=== PATIENT | female | born 1985 | race American Indian/Alaskan Native ===

== ENCOUNTER 2019-12-20 22:27 | Emergency (ER) | payer SELFPAY ==
--- NOTE | 2019-12-21 01:33 | XRay Report ---
CHEST PA AND LATERAL VIEWS INDICATION: COUGH AND FEVER. COMPARISON: None FINDINGS: Support devices: None Heart: Normal Lungs/Pleura: No acute pulmonary or pleural findings. IMPRESSION: 1. No significant abnormality. Signer Name: Matt Fischer MD Signed: 12/21/2019 1:28 AM Workstation Name: [id number]
[2019-12-21] MEDS ORDERED: IBUPROFEN 600 MG TAB PO ONE (01:34)
[2019-12-21] MEDS ORDERED: SODIUM CHLORIDE 0.9% 1000 ML 1,000 ML IV ONE (01:42)
[2019-12-21] MEDS ORDERED: methylPREDNISolone Sod Succinate 125 MG/2 ML INJ IV ONE (01:42)
[2019-12-21] MEDS: IPRATROPIUM/ALBUTEROL SULFATE 3 ML AMPUL.NEB IH ONE (02:04)
[2019-12-21 02:15] LABS: Basophils # (Auto) 0.1 K/mm3 (0.0-0.1); Basophils % (Auto) 0.9 % (0.0-1.8); Eosinophils # (Auto) 0.1 K/mm3 (0.0-0.4); Eosinophils % (Auto) 1.1 % (0.0-4.3); Hematocrit 39.6 % (30.3-42.9); Hemoglobin 13.3 gm/dl (10.1-14.3); Lymphocytes # (Auto) 2.3 K/mm3 (1.2-5.4); Lymphocytes % (Auto) 24.7 % (13.4-35.0); Mean Corpuscular HGB Conc 34 % (30-34); Mean Corpuscular Volume 83 fl (79-97); Monocytes # (Auto) 0.8 K/mm3 (0.0-0.8); Monocytes % (Auto) 8.7 % (0.0-7.3); Platelet Count 228 K/mm3 (140-440); Red Cell Distribution Width 13.4 % (13.2-15.2)
[2019-12-21 02:38] LABS: Alanine Aminotransferase 28 units/L (7-56); BUN/Creatinine Ratio 14; Blood Urea Nitrogen 10 mg/dL (7-17); Calcium 9.2 mg/dL (8.4-10.2); Hemolysis Index 8
[2019-12-21 02:46] LABS: Bacteria,Urine 4+ /HPF (Negative); Bilirubin,Urine NEG (Negative); Blood,Urine NEG (Negative); Color,Urine Yellow (Yellow); Mucus,Urine 1+ /HPF; Protein,Urine <15 mg/dL mg/dL (Negative)
--- NOTE | 2019-12-21 02:46 | Emergency Department Report ---
- General Chief Complaint: Upper Respiratory Infection Stated Complaint: FLU LIKE SYMPTOMS Source: patient Mode of arrival: Ambulatory Limitations: No Limitations - History of Present Illness Initial Comments: Patient is a 34-year-old female with a history of [id number] diabetes who presented to the ED with complaint of acute onset persistent nasal and sinus congestion, frontal sinus pressure and headache, diffuse body aches and pains, sore throat, persistent dry cough with wheezing and shortness of breath and intermittent fever and chills for the last 2 weeks worse in the last 2 days. Dank liu denies dizziness, syncope, chest pain, abdominal pain, dysuria, urinary frequency or urgency, vaginal bleeding, vaginal discharge, palpitations, vision changes or diarrhea. MD Complaint: fever, cough, sore throat, rhinorrhea, nasal congestion, sinus pain, other (diffuse body aches) -: Sudden, week(s) (2) Severity: severe Severity scale (0 -10): 8 Quality: sharp, aching Consistency: constant Improves With: nothing Worsens With: nothing Associated Symptoms: denies other symptoms, fever, chills, myalgias, headache, rhinorrhea, nasal congestion, sore throat, cough, shortness of breath. denies: diaphoresis, chest pain, abdominal pain, nausea, vomiting, diarrhea, dysuria, rash, confusion, right sweats, weight loss, epistaxis, hoarseness, ear pain Treatments Prior to Arrival: none - Related Data Previous Rx's Medication Instructions Recorded Last Taken Type Albuterol Sulfate [Proventil Hfa] 1 - 2 puff IH Q6H PRN #1 inh 12/21/19 Unknown Rx Benzonatate [Tessalon Perles] 100 mg PO Q8HR #30 capsule 12/21/19 Unknown Rx Cetirizine HCl [Zyrtec 10mg tab] 10 mg PO DAILY #30 tablet 12/21/19 Unknown Rx Doxycycline Hyclate 100 mg PO Q12H #20 tablet. 12/21/19 Unknown Rx Ibuprofen [Motrin] 600 mg PO Q8H PRN #24 tablet 12/21/19 Unknown Rx Sulfamethoxazole/Trimethoprim 1 each PO Q12H #20 tablet 12/21/19 Unknown Rx [Bactrim DS TAB] Allergies Allergy/AdvReac Type Severity Reaction Status Date / Time No Known Allergies Allergy Unverified 03/14/20 00:45 ED Review of Systems ROS: Stated complaint: FLU LIKE SYMPTOMS Other details as noted in HPI Constitutional: chills, fever, malaise Eyes: denies: eye pain, eye discharge, vision change ENT: throat pain, congestion. denies: ear pain Respiratory: cough. denies: shortness of breath, wheezing Cardiovascular: denies: chest pain, palpitations Endocrine: no symptoms reported Gastrointestinal: denies: abdominal pain, nausea, vomiting, diarrhea Genitourinary: denies: urgency, dysuria, discharge Musculoskeletal: back pain, arthralgia, myalgia. denies: joint swelling Skin: denies: rash, lesions Neurological: headache. denies: weakness, paresthesias Psychiatric: denies: anxiety, depression Hematological/Lymphatic: denies: easy bleeding, easy bruising ED Past Medical Hx - Past Medical History Previous Medical History?: Yes Hx Diabetes: Yes - Surgical History Past Surgical History?: No - Social History Smoking Status: Current Every Day Smoker Substance Use Type: None - Medications Home Medications: Home Medications Medication Instructions Recorded Confirmed Last Taken Type Albuterol Sulfate [Proventil Hfa] 1 - 2 puff IH Q6H PRN #1 inh 12/21/19 Unknown Rx Benzonatate [Tessalon Perles] 100 mg PO Q8HR #30 capsule 12/21/19 Unknown Rx Cetirizine HCl [Zyrtec 10mg tab] 10 mg PO DAILY #30 tablet 12/21/19 Unknown Rx Doxycycline Hyclate 100 mg PO Q12H #20 tablet.dr 12/21/19 Unknown Rx Ibuprofen [Motrin] 600 mg PO Q8H PRN #24 tablet 12/21/19 Unknown Rx Sulfamethoxazole/Trimethoprim 1 each PO Q12H #20 tablet 12/21/19 Unknown Rx [Bactrim DS TAB] ED Physical Exam - General Limitations: No Limitations General appearance: alert, in no apparent distress - Head Head exam: Present: atraumatic, normocephalic, normal inspection - Eye Eye exam: Present: normal appearance, PERRL, EOMI Pupils: Present: normal accommodation - ENT ENT exam: Present: mucous membranes moist, TM's normal bilaterally, normal external ear exam, other (Grossly congested nasal passages; palpable frontal sinus tenderness) - Neck Neck exam: Present: normal inspection, full ROM. Absent: tenderness, lymph adenopathy - Respiratory Respiratory exam: Present: normal lung sounds bilaterally, wheezes (Mildly diffuse coarse wheezes throughout). Absent: respiratory distress, chest wall tenderness, accessory muscle use - Cardiovascular Cardiovascular Exam: Present: regular rate, normal rhythm, normal heart sounds. Absent: systolic murmur, diastolic murmur, rubs, gallop - GI/Abdominal GI/Abdominal exam: Present: soft, normal bowel sounds. Absent: tenderness, guarding, hyperactive bowel sounds, hypoactive bowel sounds, organomegaly - Extremities Exam Extremities exam: Present: normal inspection, full ROM, normal capillary refill - Back Exam Back exam: Present: normal inspection, full ROM. Absent: tenderness, muscle spasm, paraspinal tenderness - Neurological Exam Neurological exam: Present: alert, oriented X3, CN II-XII intact, normal gait, reflexes normal - Psychiatric Psychiatric exam: Present: normal affect, normal mood - Skin Skin exam: Present: warm, dry, intact, normal color. Absent: rash ED Course Vital Signs 12/20/19 12/21/19 12/21/19 22:37 00:46 02:01 Temperature 100.3 F H 99.1 F Pulse Rate 125 H 110 H Respiratory 18 18 18 Rate Blood Pressure 152/96 Blood Pressure [Left] O2 Sat by Pulse 100 100 Oximetry 12/21/19 03:00 Temperature 98.7 F Pulse Rate 101 H Respiratory 18 Rate Blood Pressure Blood Pressure 128/80 [Left] O2 Sat by Pulse 100 Oximetry ED Medical Decision Making - Lab Data Result diagrams: 12/21/19 01:55 12/21/19 01:55 - Radiology Data Radiology results: report reviewed, image reviewed Chest x-ray shows no acute cardiopulmonary abnormalities or pneumonitis. - Medical Decision Making This is a 34-year-old female with a history of [id number] diabetes who presented to the ED with complaint of acute onset persistent nasal and sinus congestion, frontal sinus pressure and headache, diffuse body aches and pains, sore throat, persistent dry cough with wheezing and shortness of breath and int ermittent fever and chills for the last 2 weeks worse in the last 2 days. In the ED, patient is alert and oriented x3 and is not in any distress but tachycardic and febrile in triage. Lab test results were reviewed and are all nonactionable except for acute hyperglycemia of 287 mg/dL and mild hyponatremia of 136 mmol/L. All other test results were nonactionable. Chest x-ray shows no acute cardiopulmonary abnormalities or pneumonitis. Patient received DuoNeb treatment in the ED and Solu-Medrol. Patient also received treatment with ibuprofen for pains and fever. On reevaluation, patient's vital signs are stable and patient was discharged home on medications and advised to follow-up with her primary care physician in 5 to 7 days for reevaluation or return to the ED immediately if symptoms get worse. - Differential Diagnosis Pneumonia; Flu; bronchitis; URI; strep pharyngitis; Critical care attestation.: If time is entered above; I have spent that time in minutes in the direct care of this critically ill patient, excluding procedure time. ED Disposition Clinical Impression: Flu-like symptoms, Acute upper respiratory infection, Fever with chills, Acute urinary tract infection Acute bronchitis Qualifiers: Bronchitis organism: other organism Qualified Code(s): J20.8 - Acute bronchitis due to other specified organisms Acute pharyngitis Qualifiers: Pharyngitis/tonsillitis etiology: other specified organisms Qualified Code(s): J02.8 - Acute pharyngitis due to other specified organisms Disposition: DC-01 TO HOME OR SELFCARE Is pt being admited?: No Does the pt Need Aspirin: No Condition: Stable Instructions: Pharyngitis (ED), Fever in Adults (ED), Upper Respiratory Infection (ED), Acute Bronchitis (ED) Additional Instructions: Take medication with food, drink plenty fluids and follow-up with your primary care physician in 7 to 10 days for reevaluation. Return to the ED immediately if symptoms get worse. Prescriptions: Sulfamethoxazole/Trimethoprim [Bactrim DS TAB] 1 each PO Q12H #20 tablet Doxycycline Hyclate 100 mg PO Q12H #20 tablet. Ibuprofen [Motrin] 600 mg PO Q8H PRN #24 tablet PRN Reason: Pain Albuterol Sulfate [Proventil Hfa] 1 - 2 puff IH Q6H PRN #1 inh PRN Reason: Dyspnea Benzonatate [Tessalon Perles] 100 mg PO Q8HR #30 capsule Cetirizine HCl [Zyrtec 10mg tab] 10 mg PO DAILY #30 tablet Referrals: [facility] [Outside] - 3-5 Days Forms: Work/School Release Form(ED) Time of Disposition: 02:54 Print Language: EGYPTIAN
[2019-12-21 04:26] VITALS: BP 136/82
== END 2019-12-21 04:26 | disposition home or self-care (01) ==
LOC: ED 22:27
DX: J20.8 Acute bronchitis due to other specified organisms (principal); J02.8 Acute pharyngitis due to other specified organisms; J11.1 Influenza due to unidentified influenza virus with other respiratory manifestations; N39.0 Urinary tract infection, site not specified; E11.9 Type 2 diabetes mellitus without complications; F17.200 Nicotine dependence, unspecified, uncomplicated; Z79.899 Other long term (current) drug therapy
CPT/HCPCS: 36415; 71046; 80053; 81001; 85025; 87086; 87116; 87400; 87430; 96374; 99284; J2930; J7030

== ENCOUNTER 2019-12-21 06:56 | Emergency (ER) | payer SELFPAY ==
--- NOTE | 2019-12-21 09:47 | Emergency Department Report ---
ED Lower Extremity HPI - General Chief Complaint: Extremity Injury, Lower Stated Complaint: LT FOOT PAIN Time Seen by Provider: 12/21/19 09:39 Source: patient, family Mode of arrival: Ambulatory Limitations: No Limitations - History of Present Illness Initial Comments: Patient complains of left great toe pain x2 months. She states that she tripped and fell 2 months ago hurting her toe and it has been painful and mildly swollen since. Patient does have a history of diabetes. She rates her pain as a 4/10 in severity. She denies any fever/chills/sweats or redness to the area. - Related Data Previous Rx's Medication Instructions Recorded Last Taken Type Albuterol Sulfate [Proventil Hfa] 1 - 2 puff IH Q6H PRN #1 inh 12/21/19 Unknown Rx Benzonatate [Tessalon Perles] 100 mg PO Q8HR #30 capsule 12/21/19 Unknown Rx Cetirizine HCl [Zyrtec 10mg tab] 10 mg PO DAILY #30 tablet 12/21/19 Unknown Rx Doxycycline Hyclate 100 mg PO Q12H #20 tablet. 12/21/19 Unknown Rx Ibuprofen [Motrin] 600 mg PO Q8H PRN #24 tablet 12/21/19 Unknown Rx Sulfamethoxazole/Trimethoprim 1 each PO Q12H #20 tablet 12/21/19 Unknown Rx [Bactrim DS TAB] Allergies Allergy/AdvReac Type Severity Reaction Status Date / Time No Known Allergies Allergy Unverified 12/21/19 00:45 ED Review of Systems ROS: Stated complaint: LT FOOT PAIN Other details as noted in HPI Constitutional: denies: chills, diaphoresis, fever, malaise, weakness Musculoskeletal: joint swelling, arthralgia Neurological: denies: numbness, abnormal gait ED Past Medical Hx - Past Medical History Previous Medical History?: Yes Hx Diabetes: Yes - Surgical History Past Surgical History?: No - Social History Smoking Status: Current Every Day Smoker Substance Use Type: Prescribed - Medications Home Medications: Home Medications Medication Instructions Recorded Confirmed Last Taken Type Albuterol Sulfate [Proventil Hfa] 1 - 2 puff IH Q6H PRN #1 inh 12/21/19 Unknown Rx Benzonatate [Tessalon Perles] 100 mg PO Q8HR #30 capsule 12/21/19 Unknown Rx Cetirizine HCl [Zyrtec 10mg tab] 10 mg PO DAILY #30 tablet 12/21/19 Unknown Rx Doxycycline Hyclate 100 mg PO Q12H #20 tablet. 12/21/19 Unknown Rx Ibuprofen [Motrin] 600 mg PO Q8H PRN #24 tablet 12/21/19 Unknown Rx Sulfamethoxazole/Trimethoprim 1 each PO Q12H #20 tablet 12/21/19 Unknown Rx [Bactrim DS TAB] ED Physical Exam - General Limitations: No Limitations General appearance: alert, in no apparent distress - Head Head exam: Present: atraumatic, normocephalic - Eye Eye exam: Present: normal appearance - Respiratory Respiratory exam: Absent: respiratory distress - Cardiovascular Cardiovascular Exam: Present: regular rate - Extremities Exam Extremities exam: Present: tenderness (Tenderness noted to DIP joint of left great toe with minimal swelling. No erythema or bruising noted.) - Neurological Exam Neurological exam: Present: alert, oriented X3 - Psychiatric Psychiatric exam: Present: normal affect, normal mood - Skin Skin exam: Present: warm, dry, intact, normal color. Absent: rash, cyanosis, diaphoretic, erythema, ecchymosis ED Course Vital Signs 12/21/19 07:15 Temperature 98.2 F Pulse Rate 99 H Respiratory 18 Rate Blood Pressure 134/84 O2 Sat by Pulse 100 Oximetry ED Lower Extremity MDM - Radiology Data Radiology results: report reviewed LEFT TOES 3 VIEWS INDICATION / CLINICAL INFORMATION: great toe pain x 2 months, diabetic COMPARISON: None available. FINDINGS: BONES / JOINT(S): No acute fracture or subluxation. There is mild degenerative change in the interphalangeal joint. No erosions or periosteal reaction is seen area SOFT TISSUES: No significant abnormality. ADDITIONAL FINDINGS: None. - Medical Decision Making Patient here with left toe pain for 2 months after an injury. X-ray is negative for osteomyelitis or other acute findings. It does show some osteoarthritis- suspect patient's symptoms are due to this. Recommend follow-up with primary care provider or podiatry as needed. She is nontoxic-appearing and stable for discharge home. Discussed strict return precautions in great detail with patient who verbalized understanding. Critical care attestation.: If time is entered above; I have spent that time in minutes in the direct care of this critically ill patient, excluding procedure time. ED Disposition Clinical Impression: Toe pain, left Disposition: DC-01 TO HOME OR SELFCARE Is pt being admited?: No Condition: Stable Instructions: Arthralgia (ED) Referrals: DYLON CARD DPM [Staff Physician] - 7-10 days PRIMARY CARE, [Primary Care Provider] - as needed
--- NOTE | 2019-12-21 10:25 | XRay Report ---
LEFT TOES 3 VIEWS INDICATION / CLINICAL INFORMATION: great toe pain x 2 months, diabetic COMPARISON: None available. FINDINGS: BONES / JOINT(S): No acute fracture or subluxation. There is mild degenerative change in the interpha langeal joint. No erosions or periosteal reaction is seen area SOFT TISSUES: No significant abnormality. ADDITIONAL FINDINGS: None. Signer Name: Bobby Washburn MD Signed: 12/21/2019 10:21 AM Workstation Name: [id number]
[2019-12-21 11:54] VITALS: BP 126/82
== END 2019-12-21 11:53 | disposition home or self-care (01) ==
LOC: ED 06:56
DX: M79.675 Pain in left toe(s) (principal); Z79.1 Long term (current) use of non-steroidal anti-inflammatories (NSAID); Z79.899 Other long term (current) drug therapy

== ENCOUNTER 2020-12-22 23:02 | Emergency (ER) | payer SELFPAY ==
[2020-12-22 23:33] VITALS: BP 154/93
[2020-12-23] MEDS ORDERED: IBUPROFEN 800 MG TAB PO ONE (00:16)
--- NOTE | 2020-12-23 00:39 | Emergency Department Report ---
ED General Adult HPI - General Chief complaint: Upper Respiratory Infection Stated complaint: COUGH;CHEST PAIN;HOT FLASHES;DIARRHEA Time Seen by Provider: 12/23/20 00:30 Source: patient Mode of arrival: Ambulatory Limitations: No Limitations - History of Present Illness Initial comments: Patient 35-year-old -Faro[place] female who presents for cough chills nocturnal fever for 1 week. Denies history of asthma states recurrent bronchitis however. Patient denies shortness of breath, there is no wheezing or stridor. No T-max recorded at home temp is 99.0 in triage today. There is no nausea vomiting at this time. Patient states cough is productive thick yellow patient additionally denies smoking. Symptoms are exacerbated by environmental exposure and activity. Symptoms are relieved by nothing tried. Severity scale (0 -10): 3 - Related Data Previous Rx's Medication Instructions Recorded Last Taken Type Albuterol Sulfate [Proventil Hfa] 1 - 2 puff IH Q6H PRN #1 inh 12/21/19 Unknown Rx Benzonatate [Tessalon Perles] 100 mg PO Q8HR #30 capsule 12/21/19 Unknown Rx Cetirizine HCl [Zyrtec 10mg tab] 10 mg PO DAILY #30 tablet 12/21/19 Unknown Rx Diclofenac 1% [Diclofenac 1% 100 gm TP QID PRN #1 tube 12/21/19 Unknown Rx topical gel] Doxycycline Hyclate 100 mg PO Q12H #20 tablet. 12/21/19 Unknown Rx Ibuprofen [Motrin] 600 mg PO Q8H PRN #24 tablet 12/21/19 Unknown Rx Sulfamethoxazole/Trimethoprim 1 each PO Q12H #20 tablet 12/21/19 Unknown Rx [Bactrim DS TAB] Albuterol Mdi (or & Nicu Only) 2 puff IH QID PRN #8.5 gram 12/23/20 Unknown Rx [ProAir HFA Inhaler] Ibuprofen [Motrin 800 MG tab] 800 mg PO Q8HR PRN #30 tablet 12/23/20 Unknown Rx predniSONE [Deltasone] 40 mg PO DAILY 5 Days #10 tablet 12/23/20 Unknown Rx Allergies Allergy/AdvReac Type Severity Reaction Status Date / Time No Known Allergies Allergy Verified 12/22/20 23:32 ED Review of Systems ROS: Stated complaint: COUGH;CHEST PAIN;HOT FLASHES;DIARRHEA Other details as noted in HPI Constitutional: chills, fever Eyes: as per HPI ENT: denies: ear pain, throat pain Respiratory: cough. denies: shortness of breath, wheezing Cardiovascular: denies: chest pain, palpitations Endocrine: no symptoms reported Gastrointestinal: denies: abdominal pain, nausea, diarrhea Genitourinary: denies: urgency, dysuria, discharge Musculoskeletal: denies: back pain, joint swelling, arthralgia Skin: denies: rash, lesions Neurological: denies: headache, weakness, paresthesias Psychiatric: denies: anxiety, depression Hematological/Lymphatic: denies: easy bleeding, easy bruising ED Past Medical Hx - Past Medical History Previous Medical History?: Yes Hx Diabetes: Yes - Surgical History Past Surgical History?: Yes Additional Surgical History: cyst removed from buttocks - Social History Smoking Status: Never Smoker Substance Use Type: None - Medications Home Medications: Home Medications Medication Instructions Recorded Confirmed Last Taken Type Albuterol Sulfate [Proventil Hfa] 1 - 2 puff IH Q6H PRN #1 inh 12/21/19 Unknown Rx Benzonatate [Tessalon Perles] 100 mg PO Q8HR #30 capsule 12/21/19 Unknown Rx Cetirizine HCl [Zyrtec 10mg tab] 10 mg PO DAILY #30 tablet 12/21/19 Unknown Rx Diclofenac 1% [Diclofenac 1% 100 gm TP QID PRN #1 tube 12/21/19 Unknown Rx topical gel] Doxycycline Hyclate 100 mg PO Q12H #20 tablet. 12/21/19 Unknown Rx Ibuprofen [Motrin] 600 mg PO Q8H PRN #24 tablet 12/21/19 Unknown Rx Sulfamethoxazole/Trimethoprim 1 each PO Q12H #20 tablet 12/21/19 Unknown Rx [Bactrim DS TAB] Albuterol Mdi (or & Nicu Only) 2 puff IH QID PRN #8.5 gram 12/23/20 Unknown Rx [ProAir HFA Inhaler] Ibuprofen [Motrin 800 MG tab] 800 mg PO Q8HR PRN #30 tablet 12/23/20 Unknown Rx predniSONE [Deltasone] 40 mg PO DAILY 5 Days #10 tablet 12/23/20 Unknown Rx ED Physical Exam - General Limitations: No Limitations General appearance: alert, in no apparent distress - Head Head exam: Present: atraumatic, normocephalic - Eye Eye exam: Present: normal appearance, PERRL, EOMI Pupils: Present: normal accommodation - ENT ENT exam: Present: mucous membranes moist - Neck Neck exam: Present: normal inspection, full ROM. Absent: tenderness - Respiratory Respiratory exam: Present: normal lung sounds bilaterally, chest wall tenderness (right anterior lateral ). Absent: respiratory distress, wheezes, stridor - Cardiovascular Cardiovascular Exam: Present: regular rate, normal rhythm, normal heart sounds. Absent: systolic murmur, diastolic murmur, rubs, gallop - GI/Abdominal GI/Abdominal exam: Present: soft, normal bowel sounds. Absent: distended, tenderness, guarding, rebound, rigid, bruit, hernia - Rectal Rectal exam: Present: deferred - Extremities Exam Extremities exam: Present: normal inspection, full ROM, normal capillary refill. Absent: tenderness - Back Exam Back exam: Present: normal inspection. Absent: tenderness, CVA tenderness (R), CVA tenderness (L) - Neurological Exam Neurological exam: Present: alert, oriented X3, CN II-XII intact, normal gait - Psychiatric Psychiatric exam: Present: normal affect, normal mood - Skin Skin exam: Present: warm, dry, intact, normal color. Absent: rash ED Course Vital Signs 12/22/20 12/23/20 23:27 01:55 Temperature 99.8 F H Pulse Rate 111 H 87 Respiratory 18 16 Rate Blood Pressure 154/93 O2 Sat by Pulse 100 100 Oximetry ED Medical Decision Making - Radiology Data Radiology results: report reviewed, image reviewed Fluoro Time In Minutes: XR chest 1V ap INDICATION / CLINICAL INFORMATION: cough fever COMPARISON: 12/21/2019 FINDINGS: SUPPORT DEVICES: None. HEART / MEDIASTINUM: No significant abnormality. LUNGS / PLEURA: Lungs are clear. Costophrenic sulci are sharp. No pneumothorax. ADDITIONAL FINDINGS: No significant additional findings. IMPRESSION: 1. No acute findings Signer Name: Quentin Manzano MD Signed: 12/23/2020 12:50 AM Workstation Name: [id number] Transcribed By: PAIGE Dictated By: Quentin Manzano MD Electronically Authenticated By: Quentin Manzano MD Signed Date/Time: 12/23/20 0050 DD/ 004 TD/TT: Print - Medical Decision Making cxr normal, lungs sounds clear bilat, pt sleeping quitely, easily aroused, pt advises symptoms are improved, plan dc to home with rx , follow up with pcp in 2-3 days. pt verbalized agreement and understanding of discharge plan. pt is tolerating po hydration without symptoms. Critical care attestation.: If time is entered above; I have spent that time in minutes in the direct care of this critically ill patient, excluding procedure time. ED Disposition Clinical Impression: Bronchitis Disposition: DC-01 TO HOME OR SELFCARE Is pt being admited?: No Does the pt Need Aspirin: No Condition: Stable Instructions: Chronic Bronchitis (ED) Prescriptions: predniSONE [Deltasone] 40 mg PO DAILY 5 Days #10 tablet Ibuprofen [Motrin 800 MG tab] 800 mg PO Q8HR PRN #30 tablet PRN Reason: pain fever Albuterol Mdi (or & Nicu Only) [ProAir HFA Inhaler] 2 puff IH QID PRN #8.5 gram PRN Reason: Shortness Of Breath Referrals: [facility] [Provider Group] - 3-5 Days Forms: Work/School Release Form(ED) Time of Disposition: 02:04
--- NOTE | 2020-12-23 00:54 | XRay Report ---
XR chest 1V ap INDICATION / CLINICAL INFORMATION: cough fever COMPARISON: 12/21/2019 FINDINGS: SUPPORT DEVICES: None. HEART / MEDIASTINUM: No significant abnormality. LUNGS / PLEURA: Lungs are clear. Costophrenic sulci are sharp. No pneumothorax. ADDITIONAL FINDINGS: No significant additional findings. IMPRESSION: 1. No acute findings. Signer Name: Quentin Manzano MD Signed: 12/23/2020 12:50 AM Workstation Name: [id number]
== END 2020-12-23 02:20 | disposition home or self-care (01) ==
LOC: ED 23:02
DX: J40 Bronchitis, not specified as acute or chronic (principal); E11.9 Type 2 diabetes mellitus without complications; Z79.899 Other long term (current) drug therapy; Z98.890 Other specified postprocedural states
CPT/HCPCS: 71045; 93005

== ENCOUNTER 2021-03-17 22:16 | Emergency (ER) | payer SELFPAY ==
--- NOTE | 2021-03-17 22:49 | Event Note ---
ED Screening Note ED Screening Note: PT STATES SHES BEEN OUT OF INSULIN FOR 2 DAYS AND SHE DOES NOT HAVE HER GLUCOMETER SHE [place]- BUT HAS PREVIOUS ER VISITS HERE CO WEAKNESS NO FEVER OR CHILLS NO COUGH OR SOB NO CP This initial assessment/diagnostic orders/clinical plan/treatment(s) is/are subject to change based on patients health status, clinical progression and re- assessment by fellow clinical providers in the ED. Further treatment and workup at subsequent clinical providers discretion. Patient/guardian urged not to elope from the ED as their condition may be serious if not clinically assessed and managed. Initial orders include: LABS UA
[2021-03-17 23:22] LABS: Hematocrit 41.6 % (30.3-42.9); Hemoglobin 14.1 gm/dl (10.1-14.3); Mean Corpuscular HGB Conc 34 % (30-34); Mean Corpuscular Volume 84 fl (79-97); Platelet Count 215 K/mm3 (140-440); Red Blood Count 4.95 M/mm3 (3.65-5.03); Red Cell Distribution Width 13.8 % (13.2-15.2)
[2021-03-17 23:45] LABS: Albumin 4.3 g/dL (3.9-5); Blood Urea Nitrogen 12 mg/dL (7-17); Calcium 8.6 mg/dL (8.4-10.2); Hemolysis Index 6
[2021-03-17 23:50] LABS: Alanine Aminotransferase < 5 units/L (7-56); BUN/Creatinine Ratio 17
--- NOTE | 2021-03-18 01:31 | Emergency Department Report ---
HPI - General Chief Complaint: Hyperglycemia Time Seen by Provider: 03/17/21 22:49 - HPI HPI: Room 24 The patient is a 36-year-old female present with a chief complaint of hyperglycemia. Patient states she misplaced her Lantus 2 days ago and has been without for the past 2 days. Patient states she believes her blood sugar is elevated prompted her to come to the emergency department. Patient is requesting a prescription for Lantus ED Past Medical Hx - Past Medical History Previous Medical History?: No Hx Diabetes: Yes - Surgical History Past Surgical History?: No Additional Surgical History: cyst removed from buttocks - Family History Family history: no significant - Social History Smoking Status: Current Some Day Smoker (Black and milds) Substance Use Type: None (Denies illicit drug use), Alcohol (Rarely) - Medications Home Medications: Home Medications Medication Instructions Recorded Confirmed Last Taken Type Insulin Glargine,Hum.rec.anlog 15 unit SQ QDAY #1 insuln.pen 03/18/21 Unknown Rx [Lantus Solostar] ED Review of Systems ROS: Stated complaint: HIGH BLOOD SUGAR Other details as noted in HPI Constitutional: no symptoms reported Eyes: denies: eye pain ENT: denies: throat pain Respiratory: no symptoms reported Cardiovascular: denies: chest pain Endocrine: no symptoms reported Gastrointestinal: denies: abdominal pain Genitourinary: denies: dysuria Musculoskeletal: denies: back pain Neurological: denies: headache Physical Exam - Physical Exam Vital Signs: Vital Signs 03/17/21 22:55 Temperature 98.5 F Pulse Rate 88 Respiratory 16 Rate Blood Pressure 169/103 O2 Sat by Pulse 100 Oximetry Physical Exam: GENERAL: The patient is well-developed well-nourished female lying on stretcher not appearing to be in acute distress. [] HEENT: Normocephalic. Atraumatic. Extraocular motions are intact. Patient has moist mucous membranes. NECK: Supple. Trachea midline CHEST/LUNGS: Clear to auscultation. There is no respiratory distress noted. HEART/CARDIOVASCULAR: Regular. There is no tachycardia. There is no gallop rub or murmur. ABDOMEN: Abdomen is soft, nontender. Patient has normal bowel sounds. There is no abdominal distention. SKIN: There is no rash. There is no edema. There is no diaphoresis. NEURO: The patient is awake, alert, and oriented. The patient is cooperative. The patient has no focal neurologic deficits. The patient has normal speech and gait. MUSCULOSKELETAL: There is no evidence of acute injury. ED Course Vital Signs 03/17/21 22:55 Temperature 98.5 F Pulse Rate 88 Respiratory 16 Rate Blood Pressure 169/103 O2 Sat by Pulse 100 Oximetry - Reevaluation(s) Reevaluation #1: 03/18/21 01:54 Accu-Chek 240 ED Medical Decision Making - Lab Data Result diagrams: 03/17/21 23:07 03/17/21 23:07 - Differential Diagnosis Hyperglycemia, DKA Critical care attestation.: If time is entered above; I have spent that time in minutes in the direct care of this critically ill patient, excluding procedure time. ED Disposition Clinical Impression: Hyperglycemia, Diabetes mellitus Disposition: -01 TO HOME OR SELFCARE Is pt being admited?: No Does the pt Need Aspirin: No Condition: Stable Instructions: Type 2 Diabetes Mellitus, Diagnosis, Adult, Diabetes Mellitus Type 2 in Adults (ED) Additional Instructions: Return to the emergency department should you develop worsening symptoms, inability to tolerate food or liquids, high fever or any other concerns Prescriptions: Insulin Glargine,Hum.rec.anlog [Lantus Solostar] 15 unit SQ QDAY #1 insuln.pen Referrals: [facility] [Provider Group] - 3-5 Days Time of Disposition: 01:55
[2021-03-18 02:05] LABS: Bacteria,Urine 1+ /HPF (Negative); Bilirubin,Urine NEG (Negative); Blood,Urine NEG (Negative); Color,Urine Yellow (Yellow); Mucus,Urine FEW /HPF; Protein,Urine <15 mg/dL mg/dL (Negative)
[2021-03-18 02:06] LABS: HCG Qualitative,Urine Negative (Negative)
[2021-03-18 02:28] VITALS: BP 128/90
== END 2021-03-18 02:28 | disposition home or self-care (01) ==
LOC: ED 22:16
DX: E11.65 Type 2 diabetes mellitus with hyperglycemia (principal); F17.200 Nicotine dependence, unspecified, uncomplicated; Z72.89 Other problems related to lifestyle; Z79.899 Other long term (current) drug therapy
CPT/HCPCS: 36415; 80053; 81001; 81025; 82010; 82805; 82962; 85027; 87086; 99283

== ENCOUNTER 2021-06-29 14:00 | Emergency (ER) | payer SELFPAY | END 2021-06-29 16:30 | disposition left against medical advice (07) | LOC: ED 14:00 | DX: L08.9 Local infection of the skin and subcutaneous tissue, unspecified (principal); Z53.21 Procedure and treatment not carried out due to patient leaving prior to being seen by health care provider ==

== ENCOUNTER 2021-11-23 03:46 | Emergency (ER) | payer SELFPAY ==
[2021-11-23 08:09] VITALS: BP 150/88
[2021-11-23] MEDS ORDERED: IBUPROFEN 800 MG TAB PO ONE (08:20)
[2021-11-23] MEDS ORDERED: LIDOCAINE VISCOUS 2% 15 ML ORAL LIQD PO ONE (08:33)
== END 2021-11-23 09:10 | disposition home or self-care (01) ==
LOC: ED 03:46
DX: J02.9 Acute pharyngitis, unspecified (principal); F17.200 Nicotine dependence, unspecified, uncomplicated; E11.8 Type 2 diabetes mellitus with unspecified complications; F10.20 Alcohol dependence, uncomplicated
CPT/HCPCS: 99282

== ENCOUNTER 2021-12-25 20:40 | Emergency (ER) | payer SELFPAY ==
[2021-12-26 00:45] VITALS: BP 180/100
== END 2021-12-26 07:27 | disposition left against medical advice (07) ==
LOC: ED 20:40
DX: R20.0 Anesthesia of skin (principal); Z53.21 Procedure and treatment not carried out due to patient leaving prior to being seen by health care provider

== ENCOUNTER 2021-12-25 23:08 | Emergency (ER) | payer SELFPAY ==
[2021-12-26] MEDS ORDERED: KETOROLAC 30 MG/1 ML INJ IM ONE (03:31)
[2021-12-26] MEDS ORDERED: HYDROcodone/ACETAMINOPHEN 10-325MG TAB PO ONE (03:31)
--- NOTE | 2021-12-26 03:31 | Emergency Department Report ---
ED Extremity Problem HPI - General Chief complaint: Extremity Problem,Nontraumatic Stated complaint: TOE PAIN Time Seen by Provider: 12/26/21 03:03 Source: patient Mode of arrival: Ambulatory Limitations: No Limitations - History of Present Illness Initial comments: 36-year-old type 2 diabetic presents to the ER today with complaints of right great toe pain. Patient states that she started having pain in her right great toe 4 days ago. She denies any injury or strenuous activity. She reports swelling around the great toe and discoloration. She states that the pain is worse with palpation and movement of the toe and walking and weightbearing. She states that she went to the urgent care couple days ago and they gave her shot for pain and ibuprofen but she states that none of the medications has been helping. She denies any history of gout. Patient denies any fever or chills. She does not currently have a collateral analyst. MD Complaint: extremity pain, joint paint, other (Right great toe pain) - Related Data Previous Rx's Medication Instructions Recorded Last Taken Type Insulin Glargine,Hum.rec.anlog 15 unit SQ QDAY #1 insuln.pen 03/18/21 Unknown Rx [Lantus Solostar] Sulfamethoxazole/Trimethoprim 1 each PO BID #6 tablet 03/18/21 Unknown Rx [Bactrim DS TAB] Loratadine 10 mg PO DAILY 14 Days #14 cap 11/23/21 Unknown Rx Clindamycin [Clindamycin CAP] 300 mg PO Q6H #40 cap 12/26/21 Unknown Rx HYDROcodone/APAP 5-325 [[place] 1 each PO Q4HR PRN #10 tablet 12/26/21 Unknown Rx 5/325] Allergies Allergy/AdvReac Type Severity Reaction Status Date / Time No Known Allergies Allergy Verified 12/22/20 23:32 ED Review of Systems ROS: Stated complaint: TOE PAIN Other details as noted in HPI Comment: All other systems reviewed and negative Constitutional: denies: chills, fever Eyes: denies: eye pain, eye discharge, vision change Respiratory: denies: cough, shortness of breath, SOB with exertion, SOB at rest, wheezing Cardiovascular: denies: chest pain, palpitations, dyspnea on exertion Gastrointestinal: denies: abdominal pain, nausea, diarrhea, constipation, hematemesis, hematochezia Genitourinary: denies: urgency, dysuria, discharge Musculoskeletal: joint swelling, arthralgia Skin: denies: rash, lesions, change in color, change in hair/nails, pruritus Neurological: denies: headache, weakness, numbness, paresthesias, confusion, abnormal gait, vertigo Psychiatric: denies: anxiety, depression, auditory hallucinations, visual hallucinations, homicidal thoughts, suicidal thoughts Hematological/Lymphatic: denies: easy bleeding, easy bruising, swollen glands ED Past Medical Hx - Past Medical History Hx Diabetes: Yes - Surgical History Additional Surgical History: cyst removed from buttocks - Social History Smoking Status: Current Some Day Smoker (Black and milds) Substance Use Type: Alcohol (Rarely) - Medications Home Medications: Home Medications Medication Instructions Recorded Confirmed Last Taken Type Insulin Glargine,Hum.rec.anlog 15 unit SQ QDAY #1 insuln.pen 03/18/21 Unknown Rx [Lantus Solostar] Sulfamethoxazole/Trimethoprim 1 each PO BID #6 tablet 03/18/21 Unknown Rx [Bactrim DS TAB] Loratadine 10 mg PO DAILY 14 Days #14 cap 11/23/21 Unknown Rx Clindamycin [Clindamycin CAP] 300 mg PO Q6H #40 cap 12/26/21 Unknown Rx HYDROcodone/APAP 5-325 [[place] 1 each PO Q4HR PRN #10 tablet 12/26/21 Unknown Rx 5/325] ED Physical Exam - General Limitations: No Limitations General appearance: alert, in distress (Patient appears uncomfortable secondary to pain) - Head Head exam: Present: atraumatic, normocephalic, normal inspection - Eye Eye exam: Present: normal appearance, PERRL, EOMI Pupils: Present: normal accommodation - Respiratory Respiratory exam: Absent: respiratory distress - Cardiovascular Cardiovascular Exam: Present: regular rate - Expanded Lower Extremity Exam Right Foot/Toe exam: Present: tenderness (There is severe tenderness to palpation to the right great toe mainly distally and to the plantar aspect including over the MTP area to the plantar aspect of the foot.), swelling (Mild swelling noted to the right great toe including mildly to the dorsal medial aspect of the right foot and mildly to the dorsal plantar aspect of the right distal foot.), erythema (There is mild erythema mainly around the nail folds, the plantar aspect of the right toe and also around the plantar aspect of the MTs P area. There is no streaking into the rest of the foot or into the ankle. There is a very tiny callus noted to the plantar aspect of the right great toe.). Absent: full ROM, abrasion, laceration, ecchymosis, deformity, crepidus, dislocation, amputation, puncture wound, foreign body, calcaneal tenderness, nail avulsion, subungual hematoma ED Course Vital Signs 12/26/21 12/26/21 02:46 03:59 Temperature 98.1 F Pulse Rate 85 Respiratory 18 14 Rate Blood Pressure 190/104 O2 Sat by Pulse 99 Oximetry ED Medical Decision Making - Medical Decision Making 36-year-old type 2 diabetic presents to the ER today with complaints of right great toe pain. Patient states that she started having pain in her right great toe 4 days ago. She denies any injury or strenuous activity. She reports swelling around the great toe and discoloration. She states that the pain is worse with palpation and movement of the toe and walking and weightbearing. She states that she went to the urgent care couple days ago and they gave her shot for pain and ibuprofen but she states that none of the medications has been helping. She denies any history of gout. Patient denies any fever or chills. She does not currently have a collateral analyst. 0440: Patient to exam is concerning for cellulitis to her right great toe. There is no streaking and no significant lymphangitis and no signs of an abscess, infectious tenosynovitis or necrosis at this time. Patient will be started on clindamycin and she will be given additional pain medication for better pain control. Patient instructed she needs to follow-up with a collateral analyst for proper foot care. She has a few calluses, and her right great toenail needs to be properly trimmed. Patient does appear to be in pain and so pain medication was given here in the ER overall patient currently is afebrile, she is not toxic or ill-appearing. She is neurologically intact. Patient expressed understanding and agree with plan. Patient stable at time of discharge. Critical care attestation.: If time is entered above; I have spent that time in minutes in the direct care of this critically ill patient, excluding procedure time. ED Disposition Clinical Impression: Cellulitis, toe Disposition: 01 HOME / SELF CARE / HOMELESS Is pt being admited?: No Does the pt Need Aspirin: No Condition: Stable Instructions: Cellulitis, Adult Additional Instructions: I recommend that you take the antibiotic and take it to completion. Recommend that you elevate your foot as often as possible. You can apply heat. Continue the motrin prescribed to you couple days ago and you can take the hydrocodone with it. Follow-up with the collateral analyst listed on your discharge instructions for further evaluation especially if your symptoms persist but return to the ER if your symptoms changes or worsens in any way. Prescriptions: Clindamycin [Clindamycin CAP] 300 mg PO Q6H #40 cap HYDROcodone/APAP 5-325 [[place] 5/325] 1 each PO Q4HR PRN #10 tablet PRN Reason: Pain Referrals: DYLON CARD DPM [Staff Physician] - 3-5 Days PRIMARY CARE, [Primary Care Provider] - 3-5 Days Forms: Work/School Release Form(ED) Time of Disposition: 03:41
[2021-12-26] MEDS ORDERED: CLINDAMYCIN 150 MG CAP PO ONE (04:31)
[2021-12-26 04:55] VITALS: BP 171/92
== END 2021-12-26 04:48 | disposition home or self-care (01) ==
LOC: ED 23:08
DX: L03.031 Cellulitis of right toe (principal); E11.9 Type 2 diabetes mellitus without complications; F17.200 Nicotine dependence, unspecified, uncomplicated; Z79.4 Long term (current) use of insulin; Z79.899 Other long term (current) drug therapy
CPT/HCPCS: 96372; 99282; J1885